=== PATIENT | female | born 1960 | race African-American/Black ===

== ENCOUNTER → 2017-02-27 | Outpatient (CLI) | payer OTHER ==
--- NOTE | 2017-02-27 10:53 | RADRPT ---
PROCEDURE: XR Knees. CLINICAL INDICATION: Bilateral knee pain. TECHNIQUE: Total of six views. Frontal, oblique, and lateral views of both knees. COMPARISON: Left knee radiographs dated 03/07/2015. FINDINGS: On the right side, there are moderate degenerative changes with osteophytes arising from all 3 joint compartment margins and medial joint compartment narrowing. There is no fracture or dislocation. Th ere is no lytic or blastic lesion. There is no joint effusion. On the left side, there is a total constrained knee arthroplasty which appears satisfactory. There i s no fracture, dislocation, or loosening. There is no lytic or blastic lesion. There is no joint eff usion. IMPRESSION: 1. Moderate degenerative changes of the right knee. 2. Satisfactory postoperative appearance of the left knee. RPTAT: QQ .Tashi Santos MD, MD Date Time Electronically viewed and signed by .Tashi Santos MD, MD on 02/27/2017 10:53 .R/
--- NOTE | 2017-02-27 19:23 | HKNOTE ---
DATE OF SERVICE: 02/27/2017 MAIN COMPLAINT: Pain and swelling in the right knee. HISTORY OF MAIN COMPLAINT: The patient is a 57-year-old female who underwent left total knee replac emarturo performed by performed by on 09/07/2013. She has been totally delighted with the result s of the surgery. She now complains of pain in her right knee. The patient underwent an arthroscopic operation of the right knee in 2005 and she had no further trouble with her right knee until the present time. Dahiana giron's pain started quite suddenly a few months ago. There was no history of injury. The pain star hipolito after she bent down in a kneeling position. There was no twisting of the knee. PRESENT COMPLAINTS: The knee swells. There is no instability. It will not extend fully. She is not taking any medications for the pain. She states "I can walk as far as I have to, but I g et pain in the knee with every step." She is not using a walking aid. She does not limp. Her left leg feels longer than the right leg. SPORTING ACTIVITIES: Yoga, spinning, and tennis. PAST ORTHOPEDIC HISTORY: Left knee replacement by Dr. Gooden 2013. Operative arthroscopy of th e right knee 2005. PRIOR CORTISONE INTAKE: The patient has had cortisone injections into her knees in the past. ALCOHOL INTAKE: Minimal. OTHER JOINT PROBLEMS: None. BLOOD TESTS FOR ARTHRITIS: None. PRIOR INJURIES TO HIPS OR KNEES: None. 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 She is barely able to perform her parts because of the knee problem. Fortunately, not much walking or running is involved. PAST MEDICAL HISTORY Entirely negative. PAST SURGICAL HISTORY: Left knee replacement by Dr. Gooden 2013, arthroscopic surgery of the le ft knee by Dr. Gooden 2005, cholecystectomy in 2005, negative breast biopsy 2005. ALLERGIES: PENICILLIN. MEDICATIONS: Biz 1000 mg daily for weight management. FAMILY HISTORY: Noncontributory. SYSTEMS REVIEW: Ankles swell, otherwise entirely negative. HABITS: Patient smokes medical marijuana. She drinks 1 alcoholic beverage a week. PHYSICAL EXAMINATION GENERAL: A fit-looking, slightly overweight 57-year-old female. VITAL SIGNS: Height 5 feet. Weight 165 pounds. Blood pressure 115/60, temperature 98.2. Pulse 61 , respirations 10 per minute. HIPS: Both hips have a full range of motion without pain. LEFT KNEE: Scar of previous knee replacement completely healed with keloid formation. Full range o f motion without pain. RIGHT KNEE: The right knee shows normal alignment. Operative arthroscopy scars. Extension lacks 5 degrees (severe pain). Flexion lacks 20 degrees (severe pain at limits). There is 3+ effusion. Ten jelena over the medial joint line. The medial and lateral collateral ligaments and cruciate ligaments are intact. Austin test is negative. There is no effusion, tenderness, scarring, crepitus, or cysts . The patella tracks normally. There is no tenderness on the articular surface of the patella or in the patellar groove. The Q angle is normal. IMAGING: Plain x-rays of the right knee obtained today at [facility] (3 views) w ere reviewed. These show mild narrowing of the medial joint space and patellofemoral joint. Small osteophytes, but no other secondary radiological changes of arthritis such as subchondral sclerosis or cysts. DIAGNOSES: 1. Mild degenerative osteoarthritis of the right knee. 2. Probable torn meniscus of the right knee. 3. Status post left knee replacement. 4. ALLERGIC TO PENICILLIN. MANAGEMENT: The patient is being sent for an MRI scan of the right knee with gadolinium. She will be called with the results ([phone]). She was advised that she will probably need an arthroscopic surgery on the knee. I recommended that my associate, Dr. Quintero, perform the surgery. She will return to see Dr. Quintero for separate cons ultation if she needs the surgery. Dictated By: ALISHA RAMIREZ/SEBAS Conf#: [id number] DID#: [id number]
== END | disposition home or self-care (01) ==
LOC: HKI 10:08
DX: M17.11 Unilateral primary osteoarthritis, right knee (principal); E66.3 Overweight; Z96.652 Presence of left artificial knee joint; Z88.0 Allergy status to penicillin
CPT/HCPCS: 73562; G0463